=== PATIENT | female | born 1990 | race Two or more races ===

== ENCOUNTER 2017-01-31 21:09 | Emergency (ER) | payer OTHER ==
[2017-01-31 21:24] VITALS: BP 107/76
[2017-01-31] MEDS ORDERED: Sodium Chloride 0.9% 10 ML Syringe FLUSH PRN (21:35)
[2017-01-31] MEDS ORDERED: Ondansetron 4 MG/2 ML SDV IVPUSH ONE (21:35)
[2017-01-31] MEDS ORDERED: Sodium Chloride 0.9% 1,000 ML IV SCH ×2 (21:45→23:00)
--- NOTE | 2017-01-31 22:29 | EDM.PDOC ---
ED HPI GENERAL MEDICAL PROBLEM - General Chief Complaint: Gastrointestinal Problem Stated Complaint: THROWING UP CANT KEEP FOOD DOWN Time Seen by Provider: 01/31/17 21:28 Source of Information: Reports: Patient, RN Notes Reviewed - History of Present Illness INITIAL COMMENTS - FREE TEXT/NARRATIVE: 26-year-old female comes in with nausea, vomiting and diarrhea. This started 2 days ago. Yesterday was bad with frequent repetitive vomiting and watery diarrhea. She has had a few more episodes of watery diarrhea today and continues with intermittent nausea and vomiting. She states when she tries to eat or drink then she does feel more sick. Her mouth is getting dry. She is about 11 weeks . has been going well for her other than this illness and then being sick with "influenza" not too long ago. - Related Data Allergies Allergy/AdvReac Type Severity Reaction Status Date / Time No Known Allergies Allergy Verified 01/31/17 21:18 Home Meds: Home Meds . 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: Social & Family History - Tobacco Use Smoking Status *Q: Never Smoker - Caffeine Use Caffeine Use: Reports: Soda - Recreational Drug Use Recreational Drug Use: No ED ROS GENERAL - Review of Systems Review Of Systems: See Below Constitutional: Denies: Fever, Chills, Diaphoresis HEENT: Denies: Rhinitis, Throat Pain Respiratory: Denies: Shortness of Breath, Pleuritic Chest Pain Cardiovascular: Denies: Chest Pain GI/Abdominal: Reports: Abdominal Pain (Occasional upper abdominal cramping, gone ), Diarrhea, Nausea (Frequent watery), Vomiting (Frequent repetitive for about the past 48 hours) : Denies: Dysuria Musculoskeletal: Denies: Back Pain, Joint Pain Skin: Reports: No Symptoms Neurological: Reports: No Symptoms ED EXAM, GI/ABD - Physical Exam Exam: See Below General Appearance: Alert, No Apparent Distress Eyes: Bilateral: Normal Appearance Throat/Mouth: Normal Inspection Head: No: Facial Swelling (Oral mucosa is somewhat dry) Neck: Supple, Full Range of Motion Respiratory/Chest: No Respiratory Distress, Lungs Clear, Normal Breath Sounds Cardiovascular: Regular Rate, Rhythm GI/Abdominal Exam: Soft, Non-Tender. No: Guarding Back Exam: No: CVA Tenderness (L), CVA Tenderness (R) Extremities: Normal Inspection, Normal Range of Motion. No: Pedal Edema Neurological: Alert, Oriented, No Motor/Sensory Deficits Skin Exam: Warm, Dry, Normal Color Course - Vital Signs Last Recorded V/S: Last Vital Signs Temp 98.6 F 01/31/17 21:22 Pulse 84 01/31/17 21:22 Resp 20 01/31/17 21:22 BP 107/76 01/31/17 21:22 Pulse Ox 100 01/31/17 21:22 - Orders/Labs/Meds Orders: Active Orders 24 hr Category Date Time Status Peripheral IV Care [RC] . DIRECTED Care 01/31/17 21:36 Active Peripheral IV Insertion Adult [OM.PC] Stat Oth 01/31/17 21:35 Ordered Meds: Medications Discontinued Medications Generic Name Dose Route Start Last Admin Trade Name Freq PRN Reason Stop Dose Admin Sodium Chloride 1,000 mls @ 999 mls/hr 01/31/17 21:45 01/31/17 21:50 Normal Saline IV 999 mls/hr ONETIME JEANNETTE Administration Sodium Chloride 1,000 mls @ 999 mls/hr 01/31/17 23:00 01/31/17 23:01 Normal Saline IV 999 mls/hr ONETIME JEANNETTE Administration Ondansetron HCl 4 mg 01/31/17 21:35 01/31/17 21:50 Zofran IVPUSH 01/31/17 21:36 4 mg ONETIME ONE Administration Sodium Chloride 10 ml 01/31/17 21:35 01/31/17 21:50 Saline Flush FLUSH 10 ml ASDIRECTED PRN Administration Keep Vein Open - Re-Assessments/Exams Free Text/Narrative Re-Assessment/Exam: 01/31/17 23:00 no longer vomiting but still nauseated. mouth still dry, still has not voided after 1 liter, will give 2nd liter prior to discharge. Departure - Departure Time of Disposition: 23:00 Disposition: Home, Self-Care 01 Condition: Fair Clinical Impression: Vomiting, Diarrhea, First trimester - Discharge Information Instructions: Nausea, Adult, Diarrhea, Adult, First Trimester of , [id number] Referrals: Tish Leblanc MD [Primary Care Provider] - Forms: ED Department Discharge Additional Instructions: clear liquids, only small amounts at a time until feeling better, probiotic twice daily strongly recomended, that is available OTC. Begin careful bland diet afternoon as tolerated. Follow up with your regular provider if not much better within 1 to 2 days, return to ED as needed. - My Orders Last 24 Hours: My Active Orders 01/31/17 21:35 Peripheral IV Insertion Adult [OM.PC] Stat 01/31/17 21:36 Peripheral IV Care [RC] . DIRECTED - Assessment/Plan Last 24 Hours: My Active Orders 01/31/17 21:35 Peripheral IV Insertion Adult [OM.PC] Stat 01/31/17 21:36 Peripheral IV Care [RC] . DIRECTED
== END 2017-02-01 00:10 | disposition home or self-care (01) ==
LOC: JD.ED 21:09 → SUPCPDRO 21:09 → MERGE 21:09 → JD.ED 02-01 00:10
DX: O21.9 Vomiting of pregnancy, unspecified (principal); O99.89 Other specified diseases and conditions complicating pregnancy, childbirth and the puerperium; R19.7 Diarrhea, unspecified; Z3A.11 11 weeks gestation of pregnancy
CPT/HCPCS: 96361; 96374; 99283; J2405; J7040; J7050; 99284

== ENCOUNTER 2017-02-11 11:46 | Emergency (ER) | payer MEDICAID, OTHER ==
[2017-02-11] MEDS ORDERED: Sodium Chloride 0.9% 10 ML Syringe FLUSH PRN (12:36)
[2017-02-11] MEDS ORDERED: Metoclopramide 10 MG/2 ML SDV IVPUSH ONE (12:36)
[2017-02-11] MEDS ORDERED: Sodium Chloride 0.9% 1,000 ML IV ONE (12:37)
--- NOTE | 2017-02-11 13:55 | EDM.PDOC ---
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 Patient is approximately 13 weeks . Last menstrual period was November 11. She is a . Reports that she started having vaginal bleeding 3 days ago. She states that she has been spotting on her panty liner. Reports she is also having some white discharge, which is greater than the spotting. Reports associated symptoms of nausea, decreased appetite and vomiting. Vomited 5 times over the last 1 week. She also reports lower abdominal and pelvic cramping and lower back pain. No syncope or dysuria. [employer] CUST[employer]IZE [employer] provider is Dr. Leblanc. She states that she has been seen by Dr. Lepe and has had early OB ultrasounds. Everything has been normal thus far. Blood type is B+. Scheduled see Dr. Lepe next in About a month. She denies any syncope or any recent cough or fever symptoms. Patient reports that about 3 weeks ago she was ill with influenza and had a stomach flu. Patient states that she was informed just recently that she is HPV positive and requires a colposcopy. She has been taking extra strength Tylenol for the discomfort. She does not have any nausea medications. 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 Denies: Fever Cardiovascular: Denies: Syncope GI/Abdominal: Reports: Abdominal Pain (cramping, lower abdomen and pelvis), Nausea, Vomiting (x5 over the last week) : Reports: Discharge (white, vaginal), Pain, Other (reports vaginal spotting) . Denies: Dysuria Musculoskeletal: Reports: Back Pain (lower back) Neurological: Denies: Syncope ED EXAM - Physical Exam Exam: See Below Exam Limited By: No Limitations General Appearance: Alert, WD/WN, No Apparent Distress Ears: Normal External Exam Nose: Normal Inspection Throat/Mouth: Normal Inspection, Normal Voice, No Airway Compromise Respiratory/Chest: No Respiratory Distress, Lungs Clear, Normal Breath Sounds Cardiovascular: Normal Peripheral Pulses, Regular Rate, Rhythm, No Murmur GI/Abdominal Exam: Normal Bowel Sounds, Soft, Non-Tender (Female) Exam: Normal External Exam, Normal Speculum Exam. No: Cervical Dilatation, Vaginal Bleeding Heart Tones per Min: 160 (seen on ultrasound) Back Exam: Normal Inspection. No: CVA Tenderness (L), CVA Tenderness (R) Neurological: Alert, Oriented, Normal Cognition Psychiatric: Normal Affect, Normal Mood Skin Exam: Warm, Dry, Normal Color Course - Vital Signs Last Recorded V/S: Last Vital Signs Temp 36.8 C 02/11/17 16:08 Pulse 98 02/11/17 16:08 Resp 16 02/11/17 16:08 BP 98/64 02/11/17 16:08 Pulse Ox 98 02/11/17 16:08 - Orders/Labs/Meds Labs: Laboratory Tests 02/11/17 02/11/17 02/11/17 Range/Units 12:50 12:50 14:50 WBC 10.24 H (3.98-10.04) K/mm3 RBC 4.20 (3.98-5.22) M/mm3 Hgb 12.6 (11.2-15.7) gm/L Hct 36.5 (34.1-44.9) % MCV 86.9 (79.4-94.8) fl MCH 30.0 (25.6-32.2) pg MCHC 34.5 (32.2-35.5) g/dl RDW Std Deviation 40.2 (36.4-46.3) fL Plt Count 226 (182-369) K/mm3 MPV 10.8 (9.4-12.3) fl Neut % (Auto) 76.6 H (34.0-71.1) % Lymph % (Auto) 15.5 L (19.3-51.7) % Person % (Auto) 7.1 (4.7-12.5) % Eos % (Auto) 0.3 L (0.7-5.8) Baso % (Auto) 0.2 (0.1-1.2) % Neut # (Auto) 7.84 H (1.56-6.13) K/mm3 Lymph # (Auto) 1.59 (1.18-3.74) K/mm3 Person # (Auto) 0.73 H (0.24-0.36) K/mm3 Eos # (Auto) 0.03 L (0.04-0.36) K/mm3 Baso # (Auto) 0.02 (0.01-0.08) K/mm3 Sodium 140 (136-145) mEq/L Potassium 3.8 (3.5-5.1) mEq/L Chloride 107 (98-107) mEq/L Carbon Dioxide 23 (21-32) mEq/L Anion Gap 13.8 (5-15) BUN 4 L (7-18) mg/dL Creatinine 0.5 L (0.55-1.02) mg/dL Est Cr Clr Drug Dosing 136.03 mL/min Estimated GFR (MDRD) > 60 (>60) mL/min BUN/Creatinine Ratio 8.0 L (14-18) Glucose 80 (74-106) mg/dL Calcium 9.0 (8.5-10.1) mg/dL Total Bilirubin 0.2 (0.2-1.0) mg/dL AST 16 (15-37) U/L ALT 28 (14-59) U/L Alkaline Phosphatase 75 (46-116) U/L Total Protein 7.3 (6.4-8.2) g/dl Albumin 3.3 L (3.4-5.0) g/dl Globulin 4.0 gm/dL Albumin/Globulin Ratio 0.8 L (1-2) Urine Color Light yellow (Yellow) Urine Appearance Clear (Clear) Urine pH 7.5 (5.0-8.0) Ur Specific [place] 1.020 (1.005-1.030) Urine Protein Negative (Negative) Urine Glucose (UA) Negative (Negative) Urine Ketones Trace H (Negative) Urine Occult Blood Negative (Negative) Urine Nitrite Negative (Negative) Urine Bilirubin Negative (Negative) Urine Urobilinogen 0.2 (0.2-1.0) Ur Leukocyte Esterase 1+ H (Negative) Urine RBC Not seen (0-5) /hpf Urine WBC 5-10 H (0-5) /hpf Ur Epithelial Cells 0-5 (0-5) /hpf Urine Bacteria Few (FEW) /hpf Urine Mucus Not seen (FEW) /hpf Meds: Medications Discontinued Medications Generic Name Dose Route Start Last Admin Trade Name Freq PRN Reason Stop Dose Admin Sodium Chloride 1,000 mls @ 999 mls/hr 02/11/17 12:37 02/11/17 12:54 Normal Saline IV 02/11/17 13:37 999 mls/hr ONETIME ONE Administration Metoclopramide HCl 5 mg 02/11/17 12:36 02/11/17 12:52 Reglan IVPUSH 02/11/17 12:37 5 mg ONETIME ONE Administration Sodium Chloride 10 ml 02/11/17 12:36 02/11/17 12:50 Saline Flush FLUSH 10 ml ASDIRECTED PRN Administration Keep Vein Open - Radiology Interpretation Free Text/Narrative:: transabdominal ultrasound shows a single intrauterine . heart rate 163 beats per minute. gestational age is 13 weeks and 2 days. PEGGY is August 17. CT Results Date: 02/11/17 - Re-Assessments/Exams Free Text/Narrative Re-Assessment/Exam: 02/11/17 15:40 I reviewed the ultrasound and lab results with the patient. She feels improved after some fluids and Reglan. I will write an Rx for Irefeld compounded medication for nausea, similar to diclegis. Her physical exam is unremarkable. I will treat her for a urinary tract infection. She has 1+ leukocytes and few bacteria. Urine has been sent for culture. Will treat with amoxicillin 3 times a day times a week. Follow up with OB this week. Discharge instructions as documented. Departure - Departure Time of Disposition: 15:40 Disposition: Home, Self-Care 01 Condition: Fair Clinical Impression: , Urinary tract infection - Discharge Information Prescriptions: Amoxicillin 500 mg PO TID #21 tab Instructions: and Urinary Tract Infection Referrals: Adia Fletcher NP [Primary Care Provider] - Tish Leblanc MD [Physician] - Forms: ED Department Discharge, ED Return to Work/School Form Additional Instructions: Rx for doxylamine 10/pyridoxine 50/giner root 100 1 cp Po dily #30 given. Have this medication filler at [facility] on Monday. Amoxicillin 1 tab 3 times a day for 7 days. [id number] Tylenol as needed for pain relief. make sure you aredrinking plenty of fluids. Drink about half your body weight and ounces of fluids every day. 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 Nothing vaginally until cleared by AUTO CUSTOMIZE PAINTER. No intercourse. Please return to the ER if your symptoms change or worsen.
[2017-02-11 16:14] VITALS: BP 98/64
--- NOTE | 2017-02-12 17:27 | US ---
Obstetrical ultrasound: Multiple real-time images were obtained transabdominally. Comparison: No prior study. Dates: LMP: LMP given as 11/11/16, PEGGY 08/18/17, gestational age 13 weeks 1 day Current ultrasound: PEGGY 08/17/17, gestational age 13 weeks 2 days presentation: Mobile Placenta: Posterior with no findings of placenta previa Amniotic fluid: Visually within normal limits Measurements: BPD: 1.93 cm - 13 weeks 1 day Head circumference: 7.11 cm - 13 weeks 0 days Abdominal circumference: 6.28 cm - 13 weeks 1 day Femur length: 1.11 cm - 13 weeks 3 days Estimated weight: 70 g (0 lbs. 2 oz.), estimated weight at the 20th percentile for age by current ultrasound Heart rate: 163 bpm Cervical length: 3.3 cm Impression: 1. Single intrauterine fetus mobile in presentation. Dates as noted above. 2. No complicating process is identified by ultrasound at this time. Diagnostic code #1 Agree with preliminary report issued by [facility] ([facility] preliminary report dictated on 02/11/17, 2:56 PM Central Time)
== END 2017-02-11 16:08 | disposition home or self-care (01) ==
LOC: JD.ED 11:46
DX: O23.41 Unspecified infection of urinary tract in pregnancy, first trimester (principal); Z3A.13 13 weeks gestation of pregnancy
CPT/HCPCS: 36415; 76801; 80053; 81001; 85025; 87086; 96361; 96374; 99284; J2765; J7040; J7050